=== PATIENT | male | born 2000 | race Caucasian/White ===

== ENCOUNTER 2019-01-09 09:53 | Emergency (ER) | payer SELFPAY ==
[~2019-01-09] VITALS: Ht 165.1 cm; Wt 65.8 kg
[2019-01-09 09:56] VITALS: BP 127/77
--- NOTE | 2019-01-09 10:10 | NUR ---
PT PRESENTS TO THE ED WITH C/O 08/28 BILATERAL EAR PAIN X2DAYS. PT STATES HE NOTICED BLOOD DRAINING OUT OF HIS RIGHT EAR. NO DRAINAGE NOTED AT THIS TIME. PT REPORTS NECK AND HEAD PAIN WHEN COUGHING. DENIES HX. BED LOWERED WITH SIDE RAILS UP
--- NOTE | 2019-01-09 10:15 | NUR ---
PT EVALUATED BY DR ALMODOVAR
[2019-01-09] MEDS ORDERED: cefTRIAXone 1,000 MG in LIDOCAINE 1% ***ER ONLY *** 2.1 ML IM ONE (10:25)
[2019-01-09] MEDS ORDERED: KETOROLAC 60 MG/2 ML VIAL IM ONE (10:25)
[2019-01-09] MEDS ORDERED: cefTRIAXone 1,000 MG VIAL ONE ×2 (10:35→10:39)
[2019-01-09] MEDS ORDERED: LIDOCAINE MPF 1% 5mL VIAL ONE (10:40)
[2019-01-09 11:03] VITALS: BP 118/78
--- NOTE | 2019-01-09 11:04 | NUR ---
Patient discharged with v/s stable. Written and verbal after care instructions given and explained. Patient alert, oriented and verbalized understanding of instructions. Ambulatory with steady gait. All questions addressed prior to discharge. ID band removed. Patient advised to follow up with PMD. Rx of AUGMENTIN, MOTRIN, CORTISPORIN OTIC SUSPENSION given. Patient educated on indication of medication including possible reaction and side effects. Opportunity to ask questions provided and answered.
== END 2019-01-09 11:04 | disposition home or self-care (01) ==
LOC: MED 09:53
DX: H65.93 Unspecified nonsuppurative otitis media, bilateral (principal); H72.92 Unspecified perforation of tympanic membrane, left ear; F17.200 Nicotine dependence, unspecified, uncomplicated
CPT/HCPCS: 96372; 99283; J0696; J1885; J2001